=== PATIENT | male | born 1965 | race Caucasian/White ===

== ENCOUNTER 2022-11-29 00:58 | Emergency (ER) | payer OTHER, SELFPAY ==
[2022-11-29 01:36] LABS: Bilirubin Negative (Negative); Blood, Urine Negative (Negative); Clarity Clear (Clear); Glucose, Urine (Dipstick) 500 mg/dL (Negative); Ketone, Urine Negative (Negative); Leukocyte Negative (Negative); Nitrite Negative (Negative); Protein, Urine (Dipstick) Negative (Neg-Trace)
[2022-11-29 01:38] LABS: #Basophils 0.1 thou/uL (0.0-0.2); #Eosinphils 0.1 thou/uL (0.0-0.7); #Lymphocytes 2.2 thou/uL (1.20-3.40); #Monocytes 0.4 thou/uL (0.11-0.59); #Neutrophils 3.7 thou/uL (1.40-6.50); %Basophils 1.1 % (0.0-1.0); %Eosinophils 1.3 % (0.0-10.0); %Lymphocytes 34.1 % (21.0-51.0); %Monocytes 5.9 % (0.0-10.0); %Neutrophils 57.6 % (42.0-75.0); Hemoglobin 15.7 g/dL (14.0-18.0); Mean Corpuscular HGB CONC 32.9 g/dL (32.0-36.0); Mean Corpuscular Volume 94.2 fl (78.0-98.0); Mean Platelet Volume 6.7 fL (7.4-10.4); Platelet Count 204 10x3/uL (130-400); RBC Distribution Width 12.4 % (11.5-14.5); Red Blood Cell (RBC) Count 5.08 mill/uL (4.70-6.10); White Blood Cell (WBC) Count 6.3 10x3/uL (4.8-10.8)
[2022-11-29 01:50] LABS: ALT (SGPT) 29 U/L (8-55); AST (SGOT) 17 U/L (5-34); Albumin 3.8 g/dL (3.5-5.0); Alkaline Phosphatase 109 U/L (40-110); Anion Gap 17 mmol/L (10-20); BUN (Urea Nitrogen) 13 mg/dL (8.4-25.7); Bilirubin, Total 0.3 mg/dL (0.2-1.2); CK (CPK) 108 U/L (30-200); Calc. Creatinine Clearance 0 mL/min (70-130); Calcium 9.5 mg/dL (7.8-10.44); Carbon Dioxide 23 mmol/L (22-29); Chloride 102 mmol/L (98-107); Estimated GFR 100; Globulin 3.2 g/dL (2.4-3.5); Glucose 364 mg/dL (70-105); Sodium 138 mmol/L (136-145)
[2022-11-29 02:10] LABS: CKMB 2.4 ng/mL (0-6.6)
[2022-11-29] MEDS ORDERED: Diltiazem 125 MG/25 ML SDV ONE (02:16)
[2022-11-29] MEDS ORDERED: Sodium Chloride 0.9% 100 ML ONE (02:16)
[2022-11-29] MEDS ORDERED: Fentanyl 100 MCG/2 ML VIAL ONE (02:16)
[2022-11-29] MEDS ORDERED: Sodium Chloride 0.9% 0 ML ONE (03:00)
[2022-11-29] MEDS ORDERED: Sodium Chloride 0.9% 1,000 ML ONE (03:00)
== END 2022-11-29 03:20 | disposition short-term general hospital (02) ==
LOC: NAV ERS 00:58
DX: I21.4 Non-ST elevation (NSTEMI) myocardial infarction (principal); I48.91 Unspecified atrial fibrillation; E11.65 Type 2 diabetes mellitus with hyperglycemia; I10 Essential (primary) hypertension; I25.2 Old myocardial infarction; F17.210 Nicotine dependence, cigarettes, uncomplicated; Z79.84 Long term (current) use of oral hypoglycemic drugs
CPT/HCPCS: 36416; 71045; 80053; 81003; 82550; 82553; 83880; 84484; 85025; 85379; 93005; 96365; 96375; 96376; J3010; J7050